=== PATIENT | female | born 1990 | race Caucasian/White ===

== ENCOUNTER 2022-02-07 13:25 | Emergency (ER) | payer OTHER ==
[~2022-02-07] VITALS: Ht 157.5 cm; Wt 63.0 kg
[2022-02-07] MEDS ORDERED: KETOROLAC 30MG/ML VIAL IM ONE (16:45)
[2022-02-07] MEDS ORDERED: NAPR-1176 MT (16:50)
[2022-02-07 16:52] VITALS: BP 127/74
== END 2022-02-07 17:37 | disposition home or self-care (01) ==
LOC: ER 13:25
DX: S40.022A Contusion of left upper arm, initial encounter (principal); V49.49XA Driver injured in collision with other motor vehicles in traffic accident, initial encounter; Y93.89 Activity, other specified; Y92.89 Other specified places as the place of occurrence of the external cause; Y99.8 Other external cause status
CPT/HCPCS: 81025; 96372; 99283; J1885